=== PATIENT | male | born 2000 | race Caucasian/White ===

== ENCOUNTER 2018-01-14 15:48 | Emergency (ER) | payer SELFPAY ==
[~2018-01-14] VITALS: Ht 172.7 cm; Wt 90.0 kg
[~2018-01-14 15:48] MED LIST: ADVA250A INH; IBUP600T26 PO; MONT10TA2 PO; ROBA500T PO; ZYRT10TA12 PO
[2018-01-14 16:00] VITALS: BP 129/60; PULSE 105; RESP 16; TEMP 98.2; O2SAT 100
--- NOTE | 2018-01-14 16:55 | PD ---
HPI Chief Complaint: Skin Problem Time Seen by Provider: 16:32 Travel History International Travel<30 days: No Contact w/Intl Traveler<30days: No Traveled to known affect area: No History of Present Illness HPI 17-year-old male presents emergency department with draining insect bite/abscess to the posterior right lower leg. He states he went to [facility] yesterday, and was given clindamycin as well as ibuprofen. It was not drained at that time, as they felt "it was not ready yet". Patient is now having spontaneous drainage from the area. He also has pain, warmth, but no fever or chills. No history of this in the past. No history of MRSA. Pain is 9 out of 10. He has no known drug allergies. PFSH Past Medical History Asthma: Yes Blood Disorders: No Anxiety: No Heart Rhythm Problems: Yes (MURMUR) Cardiovascular Problems: Yes Developmental Delay: No Gastrointestinal Disorders: Yes Immunizations Current: Yes Past Surgical History Other Surgery: No Social History Alcohol Use: No Tobacco Use: No Substance Use: No Allergies-Medications (Allergen,Severity, Reaction): Coded Allergies: No Known Allergies (Verified , 11/18/15) Reported Meds & Prescriptions Reported Meds & Active Scripts Active Robaxin (Methocarbamol) 500 Mg Tab 500 Mg PO Q8 PRN Ibuprofen 600 Mg Tab 600 Mg PO TID PRN Zyrtec (Cetirizine HCl) 10 Mg Tab 1 Tab PO DAILY Reported Singulair (Montelukast Sodium) 10 Mg Tab 10 Mg PO HS Advair Diskus 250/50 (Salmeterol Xinafoate/Fluticasone) 250 Mcg/50 Mcg Inhp 1 Puff INH BID Review of Systems General / Constitutional: Positive: Fever, Chills Eyes: No: Visual changes HENT: No: Headaches Cardiovascular: No: Chest Pain or Discomfort Respiratory: No: Shortness of Breath Gastrointestinal: No: Abdominal Pain Genitourinary: No: Dysuria Musculoskeletal: No: Pain Skin: Positive Lesions (Low-grade. See history of present illness), Positive Other (Right lower leg swelling), No Rash Neurologic: No: Weakness Psychiatric: No: Depression Endocrine: No: Polydipsia Hematologic/Lymphatic: No: Easy Bruising Physical Exam Narrative GENERAL: Patient appears mildly ill but not septic SKIN: Warm and dry. Normal color. Normal turgor. Patient has obvious draining abscess to the right lower posterior calf with localized tenderness and induration and erythema. HEAD: Atraumatic. Normocephalic. EYES: Pupils equal and round. No scleral icterus. No injection or drainage. ENT: No nasal bleeding or discharge. Mucous membranes pink and moist. Pharynx is clear. Airways patent NECK: Trachea midline. Supple and nontender CARDIOVASCULAR: Regular rate and rhythm. RESPIRATORY: No accessory muscle use. Clear to auscultation. Breath sounds equal bilaterally. GASTROINTESTINAL: Abdomen soft, non-tender, nondistended. Hepatic and splenic margins not palpable. MUSCULOSKELETAL: Extremities without clubbing, cyanosis, or edema. No obvious deformities. NEUROLOGICAL: Awake and alert. No obvious cranial nerve deficits. Motor grossly within normal limits. Five out of 5 muscle strength in the arms and legs. Normal speech. PSYCHIATRIC: Appropriate mood and affect; insight and judgment normal. Data Data Last Documented VS Vital Signs Date Time Temp Pulse Resp B/P (MAP) Pulse Ox O2 Delivery O2 Flow Rate FiO2 01/14/18 16:00 98.2 105 16 129/60 (83) 100 MDM Medical Decision Making Medical Screen Exam Complete: Yes Emergency Medical Condition: Yes Differential Diagnosis Cellulitis. Abscess. MRSA. Narrative Course I&D of abscesses performed Patient is given Bactrim DS p.o. now Patient continued on Bactrim DS twice daily for 7 days in addition to the clindamycin he is already taking. Patient is to take ibuprofen as needed as well Recommend warmth to the area as well as elevation and compression. Patient to follow-up in 2 days for a packing removal and wound check Patient can return sooner with worsening symptoms as needed. Procedures Procedure Narrative After the risks and benefits were discussed the following procedure was performed: INCISION AND DRAINAGE OF ABSCESS: The area was prepped and was sterilely draped. A subcutaneous wheal of 1 % Xylocaine with a total number 3 mL was used to anesthetize the area. The area was properly anesthetized. A number 11 scalpel was used to make a 0.5-cm incision across the area of the abscess. The abscess was drained an irrigated with normal saline. Quarter inch iodoform packing was placed in the wound. Sterile dressing applied. Patient advised to have packing removed in two days. Diagnosis Primary Impression: Abscess of right lower extremity excluding foot Patient Instructions: Abscess Incision and Drainage (DC), General Instructions , MRSA (Methicillin-Resistant Staphylococcus Aureus) (ED) Additional Instructions: I&D of abscesses performed Patient is given Bactrim DS p.o. now Patient continued on Bactrim DS twice daily for 7 days in addition to the clindamycin he is already taking. Patient is to take ibuprofen as needed as well Recommend warmth to the area as well as elevation and compression. Patient to follow-up in 2 days for a packing removal and wound check Patient can return sooner with worsening symptoms as needed. Med/Other Pt SpecificInfo: Prescription(s) given Disposition: 01 DISCHARGE HOME Condition: Stable Walter Bruce January 14, 2018 16:55
[2018-01-14] MEDS ORDERED: BACT800T5 PO (16:56)
[2018-01-14] MEDS ORDERED: SULFAMETHOXAZOLE-TRIMETHOPRIM DS 800-160 MG TAB PO ONE (17:00)
== END 2018-01-14 17:53 | disposition home or self-care (01) ==
LOC: NEPK 15:48
DX: L02.415 Cutaneous abscess of right lower limb (principal); J45.909 Unspecified asthma, uncomplicated
CPT/HCPCS: 10060

== ENCOUNTER 2018-01-16 17:00 | Emergency (ER) | payer SELFPAY ==
[~2018-01-16 17:00] MED LIST changes: +BACT800T5 PO
[2018-01-16 17:20] VITALS: BP 129/67; PULSE 74; RESP 15; TEMP 98.6; O2SAT 100
--- NOTE | 2018-01-16 17:46 | PD ---
HPI Chief Complaint: Wound/Suture/Staple Re-Check Time Seen by Provider: 17:31 Travel History International Travel<30 days: No Contact w/Intl Traveler<30days: No Traveled to known affect area: No History of Present Illness HPI 17-year-old male presents the ED for evaluation and packing removal after abscess I&D 2 days ago. Patient states he has been compliant with antibiotics and anti-inflammatories. He denies fever, chills, worsening of pain, numbness, tingling, weakness, limitations range of motion of the extremity. PFSH Past Medical History Asthma: Yes Blood Disorders: No Anxiety: No Heart Rhythm Problems: Yes (MURMUR) Cardiovascular Problems: Yes Developmental Delay: No Gastrointestinal Disorders: Yes Immunizations Current: Yes Past Surgical History Other Surgery: No Social History Alcohol Use: No Tobacco Use: No Substance Use: No Allergies-Medications (Allergen,Severity, Reaction): Coded Allergies: No Known Allergies (Verified , 11/18/15) Reported Meds & Prescriptions Reported Meds & Active Scripts Active Bactrim DS (Sulfamethoxazole-Trimethoprim) 800-160 Mg Tab 1 Tab PO BID Ibuprofen 600 Mg Tab 600 Mg PO TID PRN Review of Systems Except as stated in HPI: all other systems reviewed are Neg Physical Exam Narrative GENERAL: Well-nourished, well-developed male in no acute distress. SKIN: Focused skin assessment warm/dry. There is a 0.5 cm wound of the right posterior calf. Packing in place. No active drainage. There is a line of demarcation made with a skin marker, cellulitic changes are mild and do not cross this line. HEAD: Normocephalic. EYES: No scleral icterus. No injection or drainage. NECK: Supple, trachea midline. No JVD or lymphadenopathy. CARDIOVASCULAR: Regular rate and rhythm without murmurs, gallops, or rubs. RESPIRATORY: Breath sounds equal bilaterally. No accessory muscle use. GASTROINTESTINAL: Abdomen soft, non-tender, nondistended. MUSCULOSKELETAL: No cyanosis, or edema. FOCUSED RIGHT LOWER EXTREMITY EXAM: 2+ radial pulse. Patient retains full, active, painless ROM of the extremity. Neurovascularly intact distally. BACK: Nontender without obvious deformity. No CVA tenderness. Data Data Last Documented VS Vital Signs Date Time Temp Pulse Resp B/P (MAP) Pulse Ox O2 Delivery O2 Flow Rate FiO2 01/16/18 17:20 98.6 74 15 129/67 (87) 100 [facility] Medical Decision Making Medical Screen Exam Complete: Yes Emergency Medical Condition: Yes Differential Diagnosis Wound recheck versus packing removal versus cellulitis versus abscess versus other Narrative Course 17-year-old male presents the ED for evaluation and packing removal after abscess I&D 2 days ago. Patient states he has been compliant with antibiotics and anti-inflammatories. Vitals reviewed. On exam there is a small portion of packing and a 0.5 cm wound of the posterior right calf. This was removed without incident. The area is mildly erythematous, no warmth, no fluctuance noted. Patient retains full, active, painless R OM of the extremity. Clean, dry dressing was applied. Patient is instructed to continue with all antibiotics, return for worsening symptoms, otherwise follow with the primary care provider. He indicated understanding of the instructions. He is agreeable to care plan. He is stable discharged home. Diagnosis Primary Impression: Encounter for recheck of abscess following incision and drainage Additional Impression: Abscess packing removal Referrals: Primary Care Physician Additional Instructions: Keep your wound clean, dry and covered. You may leave it open to the air occasionally at home. The wound will heal from the inside out. Continue antibiotics until every dose is gone. Monitor for signs of infection as discussed. Return to the ED for worsening symptoms or any urgent or emergent medical condition. Disposition: 01 DISCHARGE HOME Condition: Stable Patricia Galan January 16, 2018 17:46
== END 2018-01-16 18:09 | disposition home or self-care (01) ==
LOC: NEPK 17:00
DX: L02.91 Cutaneous abscess, unspecified (principal); Z48.01 Encounter for change or removal of surgical wound dressing
CPT/HCPCS: 99281